=== PATIENT | female | born 2000 | race Two or more races ===

== ENCOUNTER 2024-01-10 21:26 | Emergency (ER) | payer SELFPAY ==
[~2024-01-10] VITALS: Ht 157.5 cm; Wt 68.8 kg
[2024-01-10 21:32] VITALS: BP 144/84; PULSE 88; RESP 16; TEMP 97.8; O2SAT 97
== END 2024-01-10 23:23 | disposition home or self-care (01) ==
LOC: ER 21:26
DX: F41.9 Anxiety disorder, unspecified (principal); T78.1XXA Other adverse food reactions, not elsewhere classified, initial encounter; Z00.00 Encounter for general adult medical examination without abnormal findings; X58.XXXA Exposure to other specified factors, initial encounter